=== PATIENT | male | born 1990 | race Caucasian/White ===

== ENCOUNTER 2016-03-23 11:09 | Emergency (ER) | payer MEDICAID ==
--- NOTE | 2016-03-23 12:02 | ED Physician Chart ---
Chief Complaint/HPI - Patient Information Date Seen:: 03/23/16 Time Seen:: 11:48 Chief Complaint:: RASH History of Present Illness:: THIS IS A 25 YO MALE WHO STATES THAT HE HAS A RASH ON HIS HANDS AND FEET FOR A WEEK. HE ALSO STATES THAT HE IS LIVING ON THE STREETS. HE STATES THAT HE HAS PANIC ATTACKS AND NEED MEDS FOR IT WHEN THEY OCCUR. HE DENIES CHEST PAIN, ABDOMINAL PAIN AND EXTREMITY PAIN. HE WAS A PATIENT IN ICU FOR AN OVERDOSE WHICH I REVIEWED. Allergies:: Allergies Allergy/AdvReac Type Severity Reaction Status Date / Time fish derived Allergy Verified 03/23/16 11:23 iodine Allergy Verified 03/23/16 11:23 Vitals:: Vital Signs - 8 hr 03/23/16 03/23/16 11:09 11:35 Temp 98.9 F 98.9 F HR 90 90 RR 18 18 BP 129/74 129/74 O2 Sat % 99 99 Historian:: Patient, Medical Records Review:: Nurse's Note Reviewed Review of Systems - Review of Systems General/Constitutional: No fever, No chills, No weight loss, No weakness, No diaphoresis, No edema, No loss of appetite Skin: No skin lesions, Rash, No bruising Head: No headache, No light-headedness Eyes: No loss of vision, No pain, No diplopia ENT: No earache, No nasal drainage, No sore throat, No tinnitus Neck: No neck pain, No swelling, No thyromegaly, No stiffness, No mass noted Cardio Vascular: No chest pain, No palpitations, No PND, No orthopnea, No edema Pulmonary: No SOB, No cough, No sputum, No wheezing GI: No nausea, No vomiting, No diarrhea, No pain, No melena, No hematochezia, No constipation, No hematemesis G/U: No dysuria, No frequency, No hematuria Musculoskeletal: No bone or joint pain, No back pain, No muscle pain Endocrine: No polyuria, No polydipsia Psychiatric: No prior psych history, No depression, No anxiety, No suicidal ideation Hematopoietic: No bruising, No lymphadenopathy Allergic/Immuno: No urticaria, No angioedema Neurological: No syncope, No focal symptoms, No weakness, No paresthesia, No headache, No seizure, No dizziness, No confusion, No vertigo Past Medical History - Past Medical History Obtainable: Yes Past Medical History: Other (DRUG ABUSE) Family History: None Social History: Smoker, Alcohol, Illicit Drug Use Surgical History: None Psychiatricy History: Depression, Other (DRUG ABUSE) Medication: Reviewed Family Medical History - Family Member Father History Unknown: Yes Mother Other Medical History: asthma Physical Exam - Physical Examination General/Constitutional: Awake, Well-developed, well-nourished, Alert, No distress, GCS 15, Non-toxic appearing, Ambulatory Head: Atraumatic Eyes: Lids, conjuctiva normal, PERRL, EOMI Skin: Nl inspection, No rash, No skin lesions, No ecchymosis, Well hydrated, No lymphadenopathy Other Skin comments:: THERE WAS NO RASH SEEN OF THE HANDS OR FEET. ENMT: External ears, nose nl, Nasal exam nl, Lips, teeth, gums nl Neck: Nontender, Full ROM w/o pain, No JVD, No nuchal rigidity, No bruit, No mass, No stridor Respiratory: Nl effort/Exclusion, Clear to Auscultation, No Wheeze/Rhonchi/Rales Cardio Vascular: RRR, No murmur, gallop, rubs, NL S1 S2 GI: No tenderness/rebounding/guarding, No organomegaly, No hernia, Normal BS's, Nondistended, No mass/bruits, No McBurney tenderness : No CVA tenderness Extremities: No tenderness or effusion, Full ROM, normal strength in all extremities, No edema, Normal digits & nails Neuro/Psych: Alert/oriented, DTR's symmetric, Normal sensory exam, Normal motor strength, Judgement/insight normal, Mood normal, Normal gait, No focal deficits Misc: normal gait, Normal back, No paraspinal tenderness ED Septic Shock - . Is Septic Shock (SBP<90, OR Lactate>4 mmol\L) present?: No - <6hrs of presentation: Vital Signs: Vital Signs - 8 hr 03/23/16 03/23/16 11:09 11:35 Temp 98.9 F 98.9 F HR 90 90 RR 18 18 BP 129/74 129/74 O2 Sat % 99 99 Reassessment (Disposition) - Reassessment Reassessment Condition:: Unchanged - Diagnosis Diagnosis:: PANIC DISORDER DRUG ABUSE - Aftercare/Follow up Instructions Aftercare/Follow-Up Instructions:: Counseled pt regarding lab results/diagnosis & need follow up, Refer to Discharge Instructions, Counseled pt & family regarding lab results/diagnosis & need follow up - Patient Disposition Discharge/Transfer:: Home Condition at Disposition:: Unchanged ED Discharge Plan - Patient Disposition Prescriptions: Lorazepam [Ativan] 0.5 mg PO Q12HR #0 tab Triamcinolone Acet 0.5% Cream [Kenalog 0.5%] 1 appl TP BID #0 appl Instructions: Generalized Anxiety Disorder, Rash Accepting Physician: , Primary [Other]
== END 2016-03-23 11:35 | disposition home or self-care (01) ==
LOC: ER 11:09
DX: F41.0 Panic disorder [episodic paroxysmal anxiety] (principal); F19.10 Other psychoactive substance abuse, uncomplicated; F17.200 Nicotine dependence, unspecified, uncomplicated; Z91.013 Allergy to seafood; Z88.8 Allergy status to other drugs, medicaments and biological substances
CPT/HCPCS: Z7502

== ENCOUNTER 2016-04-21 14:24 | Emergency (ER) | payer MEDICAID ==
[2016-04-21 14:40] VITALS: BP 127/64
--- NOTE | 2016-04-21 14:56 | ED Physician Chart ---
Chief Complaint/HPI - Patient Information Date Seen:: 04/21/16 Time Seen:: 14:46 Chief Complaint:: ITCHING SKIN X 6 MO AND DRY COUGH FOR OVER A YEAR History of Present Illness:: THIS 25 YEAR OLD MALE PRESENTS WITH 2 COMPLAINTS. FIRST, HE HAS HAD FULL BODY ITCHING ESPECIALLY INVOLVING THE UPPER EXTREMITIES AND HANDS. HE WAS SEEN AT ANOTHER HOSPITAL AND PRESCRIBED [facility] CREAM. HE HAS BEEN USING IT FOR A WEEK WITHOUT IMPROVEMENT. NO HISTORY OF FEVER OR CHILLS. NO DIAPHORESIS. HIS SECOND COMPLAINT IS DRY COUGH FOR OVER A YEAR. NO RESPIRATORY DISTRESS, WHEEZING, CHEST PAIN OR HEMOPTYSIS. PT SMOKES BOTH TOBACCO AND METHAMPHETAMINE. Allergies:: Allergies Allergy/AdvReac Type Severity Reaction Status Date / Time fish derived Allergy Verified 03/23/16 11:23 iodine Allergy Verified 03/23/16 11:23 Vitals:: Vital Signs - 8 hr 04/21/16 14:39 BP 127/64 Review of Systems - Review of Systems General/Constitutional: No fever, No chills, No weight loss, No weakness, No diaphoresis, No edema, No loss of appetite Skin: Skin lesions, Rash Head: No headache, No light-headedness Eyes: No loss of vision, No pain, No diplopia ENT: No earache, No sore throat, No tinnitus Neck: No neck pain, No swelling, No stiffness, Mass noted Cardio Vascular: No chest pain, No palpitations, No PND, No orthopnea, No edema Pulmonary: No SOB, Cough, No sputum, No wheezing GI: No nausea, No vomiting, No diarrhea, No pain, No hematemesis G/U: No dysuria, No hematuria Musculoskeletal: No bone or joint pain, No back pain, No muscle pain Endocrine: No polyuria, No polydipsia Psychiatric: Anxiety, No suicidal ideation Hematopoietic: No bruising Allergic/Immuno: No urticaria, No angioedema Neurological: No syncope, No weakness, No paresthesia, No headache, No seizure, No dizziness, No vertigo Past Medical History - Past Medical History Social History: Smoker, Illicit Drug Use ( SMOKES METHAMPHETAMINE.), Homeless Family Medical History - Family Member Father History Unknown: Yes Physical Exam - Physical Examination General/Constitutional: Awake, Well-developed, well-nourished, Alert, No distress, Non-toxic appearing, Ambulatory Head: Atraumatic Eyes: Lids, conjuctiva normal, PERRL, EOMI Other Eyes comments:: Sclera anenteric and no nystagmus present Other Skin comments:: ALTHOUGH THE PATIENT COMPLAINS OF GENERALIZED BODY ITCHING AND RASH I am unable to find any rash whatsoever in the areas where the patient pointed out to me the skin appears perfectly normal. The web spaces of the fingers are normal and no burrowing tracks are present. Skin is otherwise clean and without erythema, petechiae or ecchymosis. ENMT: External ears, nose nl, Oropharynx nl, Tonsils nl Neck: Full ROM w/o pain, No JVD, No nuchal rigidity Respiratory: Nl effort/Exclusion, Clear to Auscultation, No Wheeze/Rhonchi/Rales Other Respiratory comments:: Lungs are clear to auscultation in the pulse ox and the three reads 99 to 100% on room air. Cardio Vascular: RRR, No murmur, gallop, rubs ( No tachycardia) GI: No tenderness/rebounding/guarding, No organomegaly, No hernia, Nondistended , No mass/bruits, No McBurney tenderness : No CVA tenderness Extremities: No tenderness or effusion, Full ROM, normal strength in all extremities, No edema Neuro/Psych: Alert/oriented, Normal sensory exam, Normal motor strength, Mood normal, Normal gait, No focal deficits Misc: Normal back, No paraspinal tenderness Labs/Radiology/EKG Results - Lab Results Results: 2 VIEW CHEST: NO CARDIOMEGALY. NO CHF. NO AREAS OF PULMONARY CONSOLIDATION OR INFILTRATE. NO PNEUMOTHORAX. IMPRESSION: NO ACUTE CARDIOPULMONARY FINDINGS. Assessment - Assessment General Assessment: CASE SUMMARY: this 25-year-old male presents with a one year history of nonproductive cough and a six-month history of itching of his skin and concern may have scabies. It should be noted that the patient smokes methamphetamine and I attribute his symptoms to possible Methamphetamines toxicity. I gave the patient a prescription for Pemethtrin to treat his concern that he may have scabies. Patient was consul to stop smoking tobacco in methamphetamine. Patient is on doctored and was instructed to return to the emergency department if his symptoms worsened. MDM DDX FOR ITCHING: NOT hives based on physical exam. NOT Angioedema based on physical examination. NOT CONTACT DERMATITIS due to patient's history and physical examination. O ED Septic Shock - . Is Septic Shock (SBP<90, OR Lactate>4 mmol\L) present?: No - <6hrs of presentation: Vital Signs: Vital Signs - 8 hr 04/21/16 14:39 BP 127/64 Reassessment (Disposition) - Reassessment Reassessment Condition:: Unchanged - Diagnosis Diagnosis:: CHRONIC COUGH MOST LIKELY TO SMOKING METHAMPHETAMINES. METHAMPHETAMINE ABUSE. POSSIBLE SCABIES. RETURN TO THE ER IF YOUR SYMPTOMS WORSEN. USE THE PEMETHRIN APPLY TO THE WHOLE BODY BELOW THE NECK DOWN TO THE SOLES OF THE FEET. WASH OFF AFTER 10 HOURS. - Patient Disposition Discharge/Transfer:: Home ED Discharge Plan - Patient Disposition Admit/Discharge/Transfer: PT DISCHARGED HOME Condition at Disposition: Stable Prescriptions: Permethrin 1% Rinse [Nix Creme Rinse] 60 ml TP X1 #1 liq Instructions: Scabies Additional Instructions: Follow up with PMD in 1-3 days. Take medication as prescribed.
--- NOTE | 2016-04-22 10:49 | Diagnostic Imaging Report ---
CHEST X-RAY: 2 views INDICATION: cough for one year COMPARISON: 11/30/2015 FINDINGS: Markedly hyperinflated lungs are noted. There is no focal consolidation or pleural effusions The heart is normal in size. The osseous structures demonstrate no acute abnormalities. IMPRESSION: Markedly hyperinflated lungs. No focal consolidation identified. Please correlate clinically for possible asthma.
== END 2016-04-21 16:50 | disposition home or self-care (01) ==
LOC: ER 14:24
DX: R05 Cough (principal); F15.10 Other stimulant abuse, uncomplicated; Z91.013 Allergy to seafood; Z91.041 Radiographic dye allergy status; Z59.0 Homelessness
CPT/HCPCS: 71020-TC; Z7502

== ENCOUNTER 2017-07-02 08:07 | Emergency (ER) | payer BC, MEDICAID ==
--- NOTE | 2017-07-02 08:41 | ED Physician Chart ---
ED Chief Complaint/HPI - Patient Information Date Seen:: 07/02/17 Time Seen:: 08:25 Chief Complaint:: altered level of consciousness History of Present Illness:: Patient was reportedly found sitting on the toilet and a fast food restaurant. He admits to injecting heroin into his right antecubital fossa at about 0800. Paramedics did not give Narcan and the patient requests to me that none be given. Patient specifically denies taking any other drugs except heroin this morning. Patient has been injecting heroin on a daily basis for about 3 months. He previously has done other illicit drugs like cocaine and crystal meth but not recently. Allergies:: Allergies Allergy/AdvReac Type Severity Reaction Status Date / Time fish derived Allergy Verified 03/23/16 11:23 iodine Allergy Verified 03/23/16 11:23 Vitals:: Vital Signs - 8 hr 07/02/17 08:19 Temp 96.7 F HR 96 RR 16 BP 126/80 O2 Sat % 100 Historian:: Patient Review:: Nurse's Note Reviewed ED Review of Systems - Review of Systems General/Constitutional: No fever, No chills, No weight loss, No weakness, No diaphoresis, No edema, No loss of appetite Skin: No skin lesions, No rash, No bruising Head: No headache, No light-headedness Eyes: No loss of vision, No pain, No diplopia ENT: No earache, No nasal drainage, No sore throat, No tinnitus Neck: No neck pain, No swelling, No thyromegaly, No stiffness, No mass noted Cardio Vascular: No chest pain, No palpitations, No PND, No orthopnea, No edema Pulmonary: No SOB, No cough, No sputum, No wheezing GI: No nausea, No vomiting, No diarrhea, No pain, No melena, No hematochezia, No constipation, No hematemesis G/U: No dysuria, No frequency, No hematuria Musculoskeletal: No bone or joint pain, No back pain, No muscle pain Endocrine: No polyuria, No polydipsia Psychiatric: No prior psych history, No depression, No anxiety, No suicidal ideation Hematopoietic: No bruising, No lymphadenopathy Allergic/Immuno: No urticaria, No angioedema Neurological: No syncope, No focal symptoms, Weakness, No paresthesia, No headache, No seizure, No dizziness, No confusion, No vertigo, Other (altered level of consciousness) ED Past Medical History - Past Medical History Past Medical History: No significant medical hx Family History: Diabetes Melitus, HTN Social History: Non Smoker, No Alcohol Surgical History: other (lymph node resection left side of neck) Medication: None Family Medical History - Family Member Father History Unknown: Yes ED Physical Exam - Physical Examination General/Constitutional: Awake, Well-developed, well-nourished, Alert, No distress, GCS 15, Non-toxic appearing, Ambulatory Other Gen/Cons comments:: Mildly lethargic but gives a coherent history Head: Atraumatic Eyes: Lids, conjuctiva normal, PERRL, EOMI Other Eyes comments:: Pupils about 1 1/2 mm in diameter Skin: No rash, No skin lesions, No ecchymosis, Well hydrated, No lymphadenopathy Other Skin comments:: Several needle meneses right antecubital fossa ENMT: External ears, nose nl, Nasal exam nl, Lips, teeth, gums nl Neck: Nontender, Full ROM w/o pain, No JVD, No nuchal rigidity, No bruit, No mass, No stridor Respiratory: Nl effort/Exclusion, Clear to Auscultation, No Wheeze/Rhonchi/Rales Cardio Vascular: RRR, No murmur, gallop, rubs, NL S1 S2 GI: No tenderness/rebounding/guarding, No organomegaly, No hernia, Normal BS's, Nondistended, No mass/bruits, No McBurney tenderness : No CVA tenderness Extremities: No tenderness or effusion, Full ROM, normal strength in all extremities, No edema, Normal digits & nails Neuro/Psych: Alert/oriented, DTR's symmetric, Normal sensory exam, Normal motor strength, Judgement/insight normal, Mood normal, Normal gait, No focal deficits Misc: Normal back, No paraspinal tenderness ED Assessment - Assessment General Assessment: Plan is to observe patient for 2 hours and if he is normally alert and normally ambulatory at that time to discharge the patient. ED Septic Shock - . Is Septic Shock (SBP<90, OR Lactate>4 mmol\L) present?: No - <6hrs of presentation: Vital Signs: Vital Signs - 8 hr 07/02/17 08:19 Temp 96.7 F HR 96 RR 16 BP 126/80 O2 Sat % 100 ED Reassessment (Disposition) - Reassessment Reassessment Condition:: Improved - Diagnosis Diagnosis:: Heroin overdose - Aftercare/Follow up Instructions Aftercare/Follow-Up Instructions:: Refer to Discharge Instructions - Patient Disposition Discharge/Transfer:: Home Condition at Disposition:: Stable, Improved
[2017-07-02] MEDS ORDERED: Sodium Chloride 0.9% 1,000 ML IV ONE (10:19)
[2017-07-02] MEDS ORDERED: Thiamine 100 mg/mL 2mL Vial IM STA (10:20)
[2017-07-02] MEDS ORDERED: Multivitamin Tab PO ONE (10:25)
[2017-07-02] MEDS ORDERED: Multivitamin Tab ONE (10:44)
[2017-07-02] MEDS ORDERED: Thiamine 100 mg/mL 2mL Vial ONE (10:44)
[2017-07-02 10:49] LABS: % BASOPHILS 0.1 % (0.0-2.0); % LYMPHOCYTES 25.8 % (20.0-50.0); % MONOCYTES 4.5 % (2.0-10.0); % NEUTROPHILS 63.6 % (40.0-80.0); EOSINOPHILE ABSOLUTE 0.2 Th/cmm (0.1-0.4); HEMATOCRIT 36.8 % (41.0-60); HEMOGLOBIN 12.1 gm/dL (12-16); MEAN CELL VOLUME 86.7 fl (80-99); MEAN CORPUSCULAR HEMOGLOBIN 28.5 pg (26.0-30.0); MEAN CORPUSCULAR HGB CONC 32.9 pg (28.0-36.0); MEAN PLATELET VOLUME 8.2 fl; MONOCYTE ABSOLUTE 0.2 Th/cmm (0.3-1.0); NEUTROPHILE ABSOLUTE 2.4 Th/cmm (1.8-8.0); PLATELET COUNT 238 Th/cmm (150-400); RED BLOOD COUNT 4.25 Mil/cmm (4.30-5.70); RED CELL DISTRIBUTION WIDTH 12.9 % (11.5-20.0)
[2017-07-02 11:07] LABS: WHITE BLOOD COUNT 3.8 Th/cmm (4.8-10.8)
[2017-07-02 11:10] LABS: ALB/GLOB RATIO 1.5 (1.0-1.8); ALBUMIN 4.1 gm/dL (4.2-5.5); ALKALINE PHOSPHATASE 48 U/L (34-104); ANION GAP 7.1 (7.0-16.0); BILIRUBIN,TOTAL 0.3 mg/dL (0.3-1.0); BUN - UREA NITROGEN 13 mg/dL (7-25); CALCIUM SERUM 9.2 mg/dL (8.6-10.3); CARBON DIOXIDE 30.5 mEq/L (21.0-31.0); CHLORIDE 101 mEq/L (98-107); CREATININE - SERUM 0.8 mg/dL (0.7-1.3); GFR AFRICAN-AMERICAN > 60.0 ml/min (>90); GFR NON AFRICAN-AMERICAN > 60.0 ml/min; GLUCOSE 108 mg/dL (70-105); POTASSIUM SERUM 3.6 mEq/L (3.5-5.1); SGOT 21 U/L (13-39); SGPT/ALT 23 U/L (7-52); SODIUM SERUM 135 mEq/L (136-145); TOTAL PROTEIN,SERUM 6.8 gm/dL (6.0-8.3)
--- NOTE | 2017-07-02 17:01 | Discharge Summary ---
DATE OF DISCHARGE: 07/02/[address] Fang. The patient was a heroin addiction. The patient was given heroin. He has been here since last night and the patient was given the medication, he woke up right now. He ate his lunch. He wants to go home and the patient seems to be fine and he can go home. I do not see anything wrong with him. His white count is 3.8, hemoglobin is 12.1, hematocrit is 36.8, neutrophils 63. Sodium 135, potassium 3.6, chloride 101, CO2 30.5, BUN 13, creatinine 0.5. Lactic acid is 0.58. Magnesium is 2.3. Liver function test is normal. Albumin is 4.1. The patient, otherwise essentially appears to be normal. The patient wants to go home. He can be discharged to home with the same usual diagnosis of heroin addiction. The patient was advised not to use any of this narcotic medications. He is already advised by Dr. Fang. Once again we also advised the patient and the patient could be discharged home. The nurse is aware, they will discharge the patient home. JOB# [id number]
== END 2017-07-02 16:15 | disposition home or self-care (01) ==
LOC: ER 08:07
DX: T40.1X1A Poisoning by heroin, accidental (unintentional), initial encounter (principal); Y92.89 Other specified places as the place of occurrence of the external cause; Z91.013 Allergy to seafood; Z91.041 Radiographic dye allergy status
CPT/HCPCS: 99284; 96372; 36415; 83605; 85025; 83735; 80053; J3411; J7030; Z7502